=== PATIENT | male | born 1970 ===

== ENCOUNTER 2021-04-13 07:02 | Day surgery (SDC) | payer OTHER | END 2021-04-13 14:19 | disposition home or self-care (01) | LOC: AMB-ENDOS 07:02 → CIR.AMB 08:15 → AMB-ENDOS 14:19 | PROVIDERS: ATTEND Surgery | DX: D12.5 Benign neoplasm of sigmoid colon (principal); Z20.822 Contact with and (suspected) exposure to COVID-19 ==